=== PATIENT | female | born 1950 | race Caucasian/White ===

== ENCOUNTER → 2024-12-10 16:40 | Outpatient (REF) | payer MEDICARE, OTHER, SELFPAY | LOC: RAD 16:40 | PROVIDERS: ATTENDING PHYSICIAN Internal Medicine Gastroenterology; FAMILY PHYSICIAN Family Medicine | DX: R10.13 Epigastric pain (principal); R93.5 Abnormal findings on diagnostic imaging of other abdominal regions, including retroperitoneum | CPT/HCPCS: 74178; Q9967 ==